=== PATIENT | male | born 1995 | race Caucasian/White ===

== ENCOUNTER → 2016-06-08 | Outpatient (CLI) | payer BC ==
--- NOTE | 2016-06-08 12:34 | Diagnostic Imaging Report ---
3 views of the left ankle. INDICATION: Injury. FINDINGS: There is no definite fracture, dislocation, or radiopaque foreign body. A tiny calcification or bony fragment measuring 3 x 1 mm at the undersurface of the lateral malleolus could be secondary to an avulsion injury. Ankle mortise is normal in configuration. There is mild lateral soft tissue swelling. IMPRESSION: Lateral soft tissue swelling. Tiny calcific or ossific fragment at the undersurface of the lateral malleolus could relate to an avulsion injury. Correlate clinically. Report was stat faxed to office of SARAH Avalos, @ 12:31 PM/brayan. Dictated by: Dictated on workstation # [id number]
--- NOTE | 2016-06-08 13:37 | Diagnostic Imaging Report ---
2 views of the left foot. INDICATION: Left foot pain after injury. FINDINGS: There is a tiny ossific fragment measuring 3 x 1 mm projecting near the lower aspect of the lateral malleolus. This could relate to an avulsion injury. No fracture, dislocation, or radiopaque foreign body is seen. Only two views of the foot are obtained. A more optimal protocol for foot injury would be three views to increase sensitivity of detection for injury or subtle fracture. There is soft tissue swelling seen around the distal foot at the level of the metatarsal bones. IMPRESSION: Tiny ossific density at the undersurface of the lateral malleolus could be from an avulsion injury. Soft tissue swelling in the distal foot at the metatarsal level. Dictated by: Dictated on workstation # [id number]
== END ==
LOC: RAD 11:44
PROVIDERS: ATTEND Nurse Practitioner Family
DX: M25.572 Pain in left ankle and joints of left foot (principal)
CPT/HCPCS: 73610; 73620